=== PATIENT | female | born 1985 | race Two or more races ===

== ENCOUNTER 2023-01-17 23:46 | Inpatient (IN) | payer MEDICAID, OTHER ==
[~2023-01-17] VITALS: Ht 162.6 cm; Wt 40.4 kg
--- NOTE | 2023-01-17 23:46 | NUR ---
[id number] FROM HOME CC OF MULT. EPISODES OF VOMITING. PT WAS DX W/ ACHALASIA OF STOMACH 1 YR AGO. 11 WEEKS . A2. PT AAOX4, IN NAD, PLACED COMFORTABLY IN BED, VITALS CHECKED.
[2023-01-18] VITALS (20 sets, daily range): BP systolic 89–111; BP diastolic 65–93
[2023-01-18] MEDS ORDERED: IV NS 0.9% 1,000 ML IV PRN
[2023-01-18] MEDS ORDERED: ONDANSETRON HCL/PF 4 MG/2 ML VIAL IV ONE
[2023-01-18] MEDS ORDERED: ONDANSETRON HCL/PF 4 MG/2 ML VIAL ONE (00:02)
--- NOTE | 2023-01-18 00:05 | NUR ---
XR COMPLETED AT BEDSIDE
--- NOTE | 2023-01-18 00:55 | NUR ---
BLOOD WORK COLLECTED AND SENT TO LAB
[2023-01-18 01:16] LABS: BASOPHILS % (AUTO) 0.4 % (0.0-2.0); EOSINOPHILS % (AUTO) 0.3 % (0.0-6.0); HEMATOCRIT 46 % (33-45); HEMOGLOBIN 14.6 g/dL (11.5-14.8); LYMPHOCYTES # (AUTO) 1.5 K/uL (0.8-4.8); LYMPHOCYTES % (AUTO) 15.2 % (20.0-44.0); MEAN CORPUSCULAR HGB CONC 32 g/dl (31.0-36.0); MEAN CORPUSCULAR VOLUME 91 fL (82-100); MONOCYTES # (AUTO) 0.3 K/uL (0.1-1.30); MONOCYTES % (AUTO) 3.4 % (2.0-12.0); NEUTROPHILS % (AUTO) 80.7 % (43.0-81.0); PLATELET COUNT (AUTO) 113 K/uL (150-450); RED BLOOD CELL COUNT(AUTO) 5.11 MIL/uL (4.0-5.2); WHITE BLOOD COUNT (AUTO) 9.9 K/uL (4.3-11.0)
[2023-01-18 01:31] LABS: CALCIUM, SERUM 8.6 mg/dL (8.5-10.1); CREATININE 0.9 mg/dL (0.6-1.3); POTASSIUM 3.7 mmol/L (3.5-5.1)
[2023-01-18] MEDS ORDERED: IV D5W 1,000 ML IV ONE (02:00)
--- NOTE | 2023-01-18 02:08 | NUR ---
COVID SWAB DONE COLLECTED AND SENT TO LAB
--- NOTE | 2023-01-18 03:44 | NUR ---
20GA TO RIGHT AC ESTABLISHED
--- NOTE | 2023-01-18 03:56 | NUR ---
REPORT GIVEN TO ED AT ICU
[2023-01-18] MEDS ORDERED: IV D5W 1,000 ML IV PRN (04:00)
[2023-01-18] MEDS ORDERED: ACETAMINOPHEN 325 MG TABLET PO PRN (04:00)
[2023-01-18] MEDS ORDERED: Z GUARD REMEDY 4 OZ OINT TP PRN (04:00)
[2023-01-18] MEDS ORDERED: MAGNESIUM HYDROXIDE 30 ML UDC PO PRN (04:00)
--- NOTE | 2023-01-18 04:04 | NUR ---
per pt she is not taking any meds at home
--- NOTE | 2023-01-18 04:19 | NUR ---
transferred to [facility] under ALS protocol.
--- NOTE | 2023-01-18 08:00 | NUR ---
RN NOTES RECEIVED PATIENT IN THE BED RESTING. A/O X4, WAS COMPLAINING OF NAUSEA, VSS, SEEN HOSPITALIST Dr ISABEL, INCREASE IV INFUSION D 5 @100 ML/HR, PATIENT CONTINENT, COLLECTED UA FOR . PATIENT NOTED FEELING WEAK. PATIENT CLEAR LIQUID DIET. CALL LIGHT WITHIN TO REACH. PATIENT LAB VALUED REVIEWED, AND AWARE OF. WILL FOLLOW UP.
[2023-01-18] MEDS: ONDANSETRON HCL/PF 4 MG/2 ML VIAL IVP PRN ×3 (08:30→23:04)
--- NOTE | 2023-01-18 08:30 | NUR ---
RN NOTES ADMINISTERED ZOFRAN 4 MG/ML IV PUSH FOR NAUSEA.
[2023-01-18] MEDS: IV D5W 1,000 ML IV PRN ×3 (08:31→23:19)
--- NOTE | 2023-01-18 12:00 | NUR ---
RN NOTES MEDICATION WERE ADMINISTERED FOR NAUSEA EFFECTIVE, PATIENT EATING LUNCH, POOR EATER, NEXT TO THE BED.
[2023-01-18] MEDS: ENSURE CLEAR 237 ML LIQUID (MIX BERRY) PO SCH ×2 (13:00→17:00)
[2023-01-18] MEDS ORDERED: ENSURE ENLIVE CHOC 237 ML CAN PO SCH (14:00)
--- NOTE | 2023-01-18 17:00 | NUR ---
RN NOTES ADMINISTERED ZOFRAN 4 MG/ML IV PUSH FOR NAUSEA/VOMITING VSS, PATIENT TOLERATING FOOD. NEXT TO THE BED. INFUSING D5 @100 ML/HR INTACT ON RAC. CALL LIGHT WITHIN TO REACH.ENDORSED ONCOMING NURSE NICK.
--- NOTE | 2023-01-18 19:27 | NUR ---
RECEIVED PATIENT IN THE BED RESTING. A/O X4, ON RA, NO SOB. VSS. NAUSEOUS. PATIENT CONTINENT, UNABLE TO AMBULATE DUE TO GENERALIZED WEAKNESS. PATIENT ON CLEAR LIQUID DIET. ICE CHIPS AT BEDSIDE. SAFETY MEASURES IN PLACE. HOB ELEVATED. CALL LIGHT WITHIN TO REACH. WILL CONTINUE PLAN OF CARE.
--- NOTE | 2023-01-18 23:28 | NUR ---
ADMINISTERED ZOFRAN 4 MG/ML IV PUSH FOR NAUSEA/VOMITING. VSS. WILL CONTINUE TO MONITOR.
[2023-01-19] VITALS (24 sets, daily range): BP systolic 89–112; BP diastolic 60–81
[2023-01-19] MEDS: MAG HYDROX/AL HYDROX/SIMETH 30 ML UDC PO PRN (01:44)
[2023-01-19 04:11] LABS: BASOPHILS % (AUTO) 0.5 % (0.0-2.0); EOSINOPHILS % (AUTO) 1.5 % (0.0-6.0); HEMATOCRIT 39 % (33-45); HEMOGLOBIN 12.6 g/dL (11.5-14.8); LYMPHOCYTES # (AUTO) 1.7 K/uL (0.8-4.8); LYMPHOCYTES % (AUTO) 20.3 % (20.0-44.0); MEAN CORPUSCULAR HGB CONC 33 g/dl (31.0-36.0); MEAN CORPUSCULAR VOLUME 90 fL (82-100); MONOCYTES # (AUTO) 0.2 K/uL (0.1-1.30); MONOCYTES % (AUTO) 2.9 % (2.0-12.0); NEUTROPHILS # (AUTO) 6.4 K/uL (1.8-8.9); NEUTROPHILS % (AUTO) 74.8 % (43.0-81.0); PLATELET COUNT (AUTO) 95 K/uL (150-450); RED BLOOD CELL COUNT(AUTO) 4.31 MIL/uL (4.0-5.2); WHITE BLOOD COUNT (AUTO) 8.6 K/uL (4.3-11.0)
--- NOTE | 2023-01-19 04:23 | NUR ---
SODIUM LEVEL 160. ATTENDING PHYSICIAN NOTIFIED.
[2023-01-19 04:26] LABS: CALCIUM, SERUM 8.3 mg/dL (8.5-10.1); CREATININE 0.6 mg/dL (0.6-1.3); MAGNESIUM 2.3 mg/dL (1.8-2.4); PHOSPHORUS 2.9 mg/dL (2.5-4.9)
[2023-01-19 04:37] LABS: POTASSIUM 2.8 mmol/L (3.5-5.1)
[2023-01-19] MEDS: ONDANSETRON HCL/PF 4 MG/2 ML VIAL IVP PRN ×3 (05:13→22:39)
--- NOTE | 2023-01-19 06:50 | NUR ---
PATIENT ASLEEP IN BED RESTING. EASILY AROUSABLE. A/O X4, ON RA, NO SOB. VSS. NAUSEOUS. PATIENT CONTINENT, UNABLE TO AMBULATE DUE TO GENERALIZED WEAKNESS. PATIENT ON CLEAR LIQUID DIET. ICE CHIPS AT BEDSIDE. ENCOURAGED INTAKE. PRN MEDS GIVEN NEEDED AND ORDERED. NEEDS ATTENDED. SAFETY MEASURES MAINTAINED. HOB ELEVATED. CALL LIGHT WITHIN TO REACH. WILL ENDORSE TO NEXT NURSE ON DUTY FOR CONTINUITY OF CARE.
[2023-01-19] MEDS: ENSURE CLEAR 237 ML LIQUID (MIX BERRY) PO SCH ×3 (07:36→16:57)
[2023-01-19] MEDS: POTASSIUM CL. PREMIX PERIPHER. 50 ML IV SCH ×4 (07:41→10:34)
--- NOTE | 2023-01-19 07:45 | NUR ---
ICU/RN PT IS RESTING .ON ROOM AIR.SAT O2-98%.V/S STABLE,AFEBRILE.NO PAIN REPORTED AT THIS TIME. AWAKE,ALERT,ORIENTED.IV INFUSING ORDERED.LABS REVIEW. NOTIFIED.NEW ORDERS RECIEVED.CONTINUE MONITORING.
[2023-01-19] MEDS: methylPREDNISolone SOD SUCC 40 MG/ML VIAL IV SCH ×3 (08:48→20:43)
[2023-01-19] MEDS: IV D5W 1,000 ML IV PRN ×2 (08:51→18:16)
--- NOTE | 2023-01-19 14:50 | NUR ---
ICU/RN PT C/O OF NAUSEA.ZOFRAN 4MG IV GIVEN ORDERED. RIGHT UPPER ARM MIDLINE INSERTED ORDERED.PT NEED A LOT OF IV HYDRATION.KCL INFUSING AND IRRITATING THE PERIFERAL VEIN .PT C/O OF PAIN.CONTINUE MONITORING.
[2023-01-19 19:27] LABS: CALCIUM, SERUM 7.6 mg/dL (8.5-10.1); CREATININE 0.6 mg/dL (0.6-1.3); POTASSIUM 4.2 mmol/L (3.5-5.1)
[2023-01-20] VITALS (25 sets, daily range): BP systolic 87–111; BP diastolic 56–82
[2023-01-20 03:10] LABS: BASOPHILS % (AUTO) 0.1 % (0.0-2.0); EOSINOPHILS % (AUTO) 0.1 % (0.0-6.0); HEMATOCRIT 32 % (33-45); HEMOGLOBIN 10.7 g/dL (11.5-14.8); LYMPHOCYTES # (AUTO) 0.9 K/uL (0.8-4.8); LYMPHOCYTES % (AUTO) 9.9 % (20.0-44.0); MEAN CORPUSCULAR HGB CONC 33 g/dl (31.0-36.0); MEAN CORPUSCULAR VOLUME 88 fL (82-100); MONOCYTES # (AUTO) 0.2 K/uL (0.1-1.30); NEUTROPHILS # (AUTO) 7.9 K/uL (1.8-8.9); NEUTROPHILS % (AUTO) 87.9 % (43.0-81.0); PLATELET COUNT (AUTO) 69 K/uL (150-450); RED BLOOD CELL COUNT(AUTO) 3.65 MIL/uL (4.0-5.2)
[2023-01-20 03:23] LABS: CALCIUM, SERUM 7.8 mg/dL (8.5-10.1); CREATININE 0.5 mg/dL (0.6-1.3); POTASSIUM 3.4 mmol/L (3.5-5.1)
[2023-01-20] MEDS: ONDANSETRON HCL/PF 4 MG/2 ML VIAL IVP PRN ×3 (04:21→21:55)
[2023-01-20] MEDS: methylPREDNISolone SOD SUCC 40 MG/ML VIAL IV SCH ×3 (04:29→21:55)
[2023-01-20] MEDS: IV D5W 1,000 ML IV PRN (04:40)
[2023-01-20] MEDS: ENSURE CLEAR 237 ML LIQUID (MIX BERRY) PO SCH ×3 (08:05→17:06)
[2023-01-20] MEDS: IV D5/0.45 NACL 1,000 ML IV SCH ×2 (09:51→19:56)
[2023-01-20] MEDS: POTASSIUM CL. PREMIX PERIPHER. 50 ML IV SCH ×4 (10:24→13:34)
[2023-01-20 13:16] LABS: LYMPHOCYTES % (MANUAL) 12 % (16-48); MONOCYTES % (MANUAL) 5 % (0-11.0); NEUTROPHILS % (MANUAL) 83 (42-76)
--- NOTE | 2023-01-20 19:01 | NUR ---
BEDSIDE REPORT TO GURDEEP FOR CONTINUITY OF CARE. ALL DUE MEDS GIVEN AND CARE RENDERED.
--- NOTE | 2023-01-20 19:28 | NUR ---
RECEIVED PATIENT IN BED, ASLEEP AND RESTING COMFORTABLY. EASILY AROUSABLE. ALERT ORIENTED X4.ON RA, NO SOB. VSS. NAUSEOUS. PATIENT ON SUPPLEMENTS AND CLEAR LIQUID DIET. TO ENCOURAGE INTAKE. PATIENT CONTINENT. SKIN INTACT. IV SITE IS ON LEFT HAND#20 AND ON RIGHT AC#20 INFUSING D51/2NS AT 100 ML/HR. SAFETY MEASURES IN PLACE. HOB ELEVATED. SIDERAILS UP X2. CALL LIGHT WITHIN REACH. WILL CONTINUE PLAN OF CARE.
[2023-01-20] MEDS: MAG HYDROX/AL HYDROX/SIMETH 30 ML UDC PO PRN (21:55)
--- NOTE | 2023-01-20 22:05 | NUR ---
ADMINISTERED ZOFRAN 4 MG/ML IV PUSH FOR NAUSEA/VOMITING. VSS. WILL CONTINUE TO MONITOR.
--- NOTE | 2023-01-20 22:08 | NUR ---
RETURNED PRN MAALOX SUSP UDC 30ML PO. PT REFUSED TO TAKE MEDICATION.
[2023-01-21] VITALS (16 sets, daily range): BP systolic 88–102; BP diastolic 50–75
[2023-01-21] MEDS: methylPREDNISolone SOD SUCC 40 MG/ML VIAL IV SCH ×3 (04:17→21:29)
[2023-01-21] MEDS: IV D5/0.45 NACL 1,000 ML IV SCH ×2 (04:21→16:05)
[2023-01-21] MEDS: MAG HYDROX/AL HYDROX/SIMETH 30 ML UDC PO PRN (06:10)
[2023-01-21] MEDS: ENSURE CLEAR 237 ML LIQUID (MIX BERRY) PO SCH ×3 (08:23→17:24)
[2023-01-21] MEDS ORDERED: TPN/PPN PER PHARMACY IV PRN (09:00)
[2023-01-21 09:20] LABS: CALCIUM, SERUM 7.6 mg/dL (8.5-10.1); CREATININE 0.6 mg/dL (0.6-1.3); POTASSIUM 3.5 mmol/L (3.5-5.1)
--- NOTE | 2023-01-21 13:15 | NUR ---
RN NOTES; PT CAME FROM ICU, ALERT AND ORIENTED X 4, NOT IN ANY DISTRESS, WILL MONITOR
--- NOTE | 2023-01-21 13:30 | NUR ---
RN NOTES PT BEING DOWNGRADED TO TELEMETRY. PT IS STABLE, VSS, NO COMPLAINT OF PAIN AT THIS TIME, ALL DUE MEDICATIONS GIVEN. PT GOING TO ROOM 104, REPORT GIVEN TO ONCOMING NURSE FOR CONTINUATION OF CARE.
[2023-01-21] MEDS: ONDANSETRON HCL/PF 4 MG/2 ML VIAL IVP PRN (13:36)
[2023-01-21] MEDS ORDERED: TRACE ELEMENTS IV SCH (17:00)
[2023-01-21] MEDS ORDERED: TPN ADDITIVES IV SCH (17:00)
[2023-01-21] MEDS ORDERED: [UNRECOGNIZED DRUG - OTHER] IV SCH (17:00)
[2023-01-21] MEDS ORDERED: MVI ADULT IV SCH (17:00)
[2023-01-21] MEDS ORDERED: IV D5/0.45 NACL 1,000 ML IV SCH (17:30)
--- NOTE | 2023-01-21 17:30 | NUR ---
RN NOTES/: PICC LINE INSERTED BY KARAN BORREGO DNP, RIGHT UPPER ARM 2 LUMEN PATENT AND FLUSHING WELL, STARTED TPN AT 42 ML/HR, PHARMACY CALLED TO LOWER IV FLUID TO 58 ML/HR, IV HYDRATION LOWERED, OFFERED ICE CHIPS, WILL CONTINUE TO MONITOR
--- NOTE | 2023-01-21 19:10 | NUR ---
RN NOTE RECEIVED PT FOR CONTINUITY OF CARE. PATIENT A/OX4 IN NO S/SX OF ACUTE DISTRESS AT THIS TIME; CURRENTLY ON ROOM AIR WITH 02 SAT >95% AT THIS TIME.WITH IV ACCESS ON R UA PICC AND HAND#20 BOTH PATENT, INTACT AND FLUSHING WELL. WITH RUNNING D51/2NS@58MLS/HR AND TPN RUNNING @42ML/HR. WILL ENSURE SAFETY MEASURES WITHIN THE SHIFT. PATIENT BED ALARM IS ON. HEAD OF BED ELEVATED. BED IS LOCKED, IN LOWEST POSITION AND SIDE RAILS UP. CALL LIGHT WITHIN REACH OF THE PATIENT. WILL CONTINUE TO MONITOR AND REASSESS FOR ANY CHANGES AND WILL CARRY OUT ANY ONGOING AND ACTIVE MD ORDER.
--- NOTE | 2023-01-21 19:59 | NUR ---
RN CLOSING NOTES: MS RN CLOSING NOTE PT IN BED AWAKE ALERT AND ORIENTED. ALL DUE MEDS GIVEN. NEEDS MET. PM CARE DONE. ENDORSED TO FEED MIXER HELPER NURSE FOR NICK.
[2023-01-22] VITALS: BP 92/51
[2023-01-22 04:00] VITALS: BP 92/49
--- NOTE | 2023-01-22 04:00 | NUR ---
RN NOTE PATIENT REMAINED TO BE IN NO SIGNS OF ACUTE RESPIRATORY DISTRESS, SAFE ENVIRONMENT MAINTAINED FOR PT. AM PATIENT CARE ASSISTANCE RENDERED. WILL CONTINUE TO MONITOR AND REASSESS FOR ANY CHANGES THROUGHOUT THE SHIFT.
[2023-01-22] MEDS: methylPREDNISolone SOD SUCC 40 MG/ML VIAL IV SCH ×3 (04:37→20:38)
[2023-01-22 06:23] LABS: HEMATOCRIT 27 % (33-45); LYMPHOCYTES % (AUTO) 13.1 % (20.0-44.0); MEAN CORPUSCULAR HGB CONC 34 g/dl (31.0-36.0); MEAN CORPUSCULAR VOLUME 87 fL (82-100); MONOCYTES # (AUTO) 0.3 K/uL (0.1-1.30); MONOCYTES % (AUTO) 3.5 % (2.0-12.0); NEUTROPHILS # (AUTO) 6.1 K/uL (1.8-8.9); NEUTROPHILS % (AUTO) 83.4 % (43.0-81.0); PLATELET COUNT (AUTO) 60 K/uL (150-450); RED BLOOD CELL COUNT(AUTO) 3.11 MIL/uL (4.0-5.2); WHITE BLOOD COUNT (AUTO) 7.3 K/uL (4.3-11.0)
--- NOTE | 2023-01-22 06:24 | NUR ---
RN NOTE PATIENT REMAINS IN ROOM IN NO SIGNS OF RESPIRATORY DISTRESS, PATIENT STILL ON ROOM AIR ;TOLERATING WELL SATURATING @ >95% SP02. SR ON MONITOR. ON CLEAR LIQUID DIET. WITH PUREWICK CONNECTED TO SUCTION. SAFETY MEASURES IMPLEMENTED, BED IN LOWEST POSITION, LOCKED, SIDE RAILS UP, CALL LIGHT WITHIN REACH. ALL NEEDS AND ORDERS ADDRESSED DURING THE SHIFT. IV ACCESS MAINTAINED INTACT, SECURED AND FLUSHING WELL. TPN AND IV FLUIDS RUNNING ORDERED. ALL DUE MEDS GIVEN ORDERED & SCHEDULED ; PATIENT TOLERATED WELL. PATIENT KEPT CLEAN AND COMFORTABLE WITHIN THE SHIFT. PLAN: LABS; IV STEROIDS, LAND CLASSIFIER OUTPATIENT F/U, IV HYDRATION AT HOME ONCE DC'D AND CONTINUE TPN FOR NOW. PATIENT ENDORSED TO INCOMING SHIFT RN WITH STABLE VITAL SIGN AND FOR CONTINUITY OF CARE.
[2023-01-22 06:53] LABS: CALCIUM, SERUM 8.3 mg/dL (8.5-10.1); CREATININE 0.4 mg/dL (0.6-1.3); PHOSPHORUS 2.5 mg/dL (2.5-4.9)
[2023-01-22 06:54] LABS: POTASSIUM 2.8 mmol/L (3.5-5.1)
--- NOTE | 2023-01-22 07:40 | NUR ---
HVAC TECHNICIAN RESIDENTIAL OPENING NOTE RECEIVED PATIENT IN BED SLEEPING, VERBALLY RESPONSIVE WHEN AWAKEN. REMAINS IN ROOM IN NO SIGNS OF RESPIRATORY DISTRESS, PATIENT STILL ON ROOM AIR ;TOLERATING WELL SATURATING @ >95% SP02. SR ON MONITOR. ON CLEAR LIQUID DIET. WITH PUREWICK CONNECTED TO SUCTION. SAFETY MEASURES IMPLEMENTED, BED IN LOWEST POSITION, LOCKED, SIDE RAILS UP, CALL LIGHT WITHIN REACH. IV ACCESS MAINTAINED INTACT, SECURED AND FLUSHING WELL. TPN AND IV FLUIDS RUNNING ORDERED. PLAN OF CARE CONTINUE.
[2023-01-22] MEDS: ENSURE CLEAR 237 ML LIQUID (MIX BERRY) PO SCH ×3 (07:41→16:05)
[2023-01-22 08:00] VITALS: BP 95/46
[2023-01-22] MEDS ORDERED: IV D5/0.45 NACL 1,000 ML IV PRN (08:22)
[2023-01-22] MEDS: POTASSIUM CL. PREMIX PERIPHER. 50 ML IV SCH ×4 (09:53→13:05)
[2023-01-22] MEDS ORDERED: INSULIN REGULAR, HUMAN 100 UNIT/ML 3 ML VIAL SQ PRN (10:00)
[2023-01-22] MEDS ORDERED: DEXTROSE 50%-WATER 50 ML DISP.SYRIN IV PRN (10:00)
[2023-01-22 12:00] VITALS: BP 96/56
[2023-01-22] MEDS: BLOOD SUGAR DIAGNOSTIC 1 EACH STRIP IN SCH ×2 (12:23→18:06)
[2023-01-22] MEDS ORDERED: Magnesium 1GM/D5W 100ML PREMIX 100 ML IV SCH (14:00)
[2023-01-22 16:00] VITALS: BP 93/56
[2023-01-22] MEDS ORDERED: TPN #2 IV SCH ×2 (17:00)
--- NOTE | 2023-01-22 18:21 | NUR ---
ADJUSTER AND INSPECTOR CLOSING NOTE PATIENT IN BED AWAKE, AT THE BEDSIDE, ALERT AND VERBALLY RESPONSIVE, REMAINS IN ROOM IN NO SIGNS OF RESPIRATORY DISTRESS;TOLERATING WELL SATURATING @ >95% SP02. SR ON MONITOR. WITH PUREWICK CONNECTED TO SUCTION. IRVING PICC LINE NOTED PATENT AND INTACT, FLUSHES WELL, WITH TPN RUNNING AT 60ML/HR. SAFETY MEASURES IMPLEMENTED, BED IN LOWEST POSITION, LOCKED, SIDE RAILS UP, CALL LIGHT WITHIN REACH. IV ACCESS MAINTAINED INTACT, SECURED AND FLUSHING WELL. WILL ENDORSE TO NIGHT NURSE FOR NICK.
--- NOTE | 2023-01-22 19:30 | NUR ---
PARKS AND RECREATION WORKER OPENING NOTE RECEIVED PT IN BED , AWAKE, A/O X 4, ABLE TO VERBALIZE NEEDS. ON BEDSIDE. CURRENTLY ON ROOM AIR, TOLERATING WELL, SATING @ 99%. FIELD SERVICE ANALYST READS SR. NO S/SX OF ACUTE RESPI DISTRESS NOTED AT THIS TIME. NO SOB. BREATHING IS EVEN AND UNLABORED. IV ACCESS ON IRVING PICC AND R HAND #20g, BOTH PATENT, INTACT AND FLUSHING WELL. TPN RUNNING @ 60 ML/HR. PUREWICK CATHETER IN PLACE. ALL SAFETY MEASURES IMPLEMENTED: BED ALARM IS ON. HEAD OF BED ELEVATED. BED IS LOCKED, IN LOWEST POSITION AND SIDE RAILS UP. CALL LIGHT WITHIN REACH. WILL CONTINUE TO MONITOR AND REASSESS FOR ANY CHANGES AND WILL CARRY OUT ANY ONGOING AND ACTIVE MD ORDER.
[2023-01-22 20:00] VITALS: BP 94/55
[2023-01-23] VITALS (7 sets, daily range): BP systolic 89–116; BP diastolic 42–63
[2023-01-23] MEDS: INSULIN REGULAR, HUMAN 100 UNIT/ML 3 ML VIAL SQ PRN ×3 (00:22→23:45)
[2023-01-23] MEDS: BLOOD SUGAR DIAGNOSTIC 1 EACH STRIP IN SCH ×5 (00:22→23:45)
[2023-01-23] MEDS: methylPREDNISolone SOD SUCC 40 MG/ML VIAL IV SCH ×3 (04:18→20:47)
--- NOTE | 2023-01-23 06:20 | NUR ---
QUALITY CONSULTANT CLOSING NOTE PT REMAINED STABLE T/O THE NIGHT. EMETIC EPISODE DOCUMENTED 2X WITH LESS THAN 100 CC OUTPUT. ALL DUE MEDS GIVEN. NEEDS MET. KEPT PT CLEAN AND DRY. SAFETY PRECAUTIONS IN PLACE. WILL ENDORSE TO AM SHIFT NURSE FOR NICK.
--- NOTE | 2023-01-23 07:10 | NUR ---
MIXER AND SCALER OPENING NOTE RECEIVED PT IN BED , AWAKE, A/O X 4, ABLE TO VERBALIZE NEEDS ON ROOM AIR, TOLERATING WELL, SATING @ 99%. STEM THRESHING MACHINE OPERATOR READS SR. NO S/SX OF ACUTE RESPI DISTRESS NOTED AT THIS TIME. NO SOB. BREATHING IS EVEN AND UNLABORED. IV ACCESS ON IRVING PICC AND R HAND #20g, BOTH PATENT, INTACT AND FLUSHING WELL. TPN RUNNING @ 60 ML/HR. PUREWICK CATHETER IN PLACE. ALL SAFETY MEASURES IMPLEMENTED: BED ALARM IS ON. HEAD OF BED ELEVATED. BED IS LOCKED, IN LOWEST POSITION AND SIDE RAILS UP. CALL LIGHT WITHIN REACH. WILL CONTINUE TO MONITOR AND REASSESS FOR ANY CHANGES AND WILL CARRY OUT ANY ONGOING AND ACTIVE MD ORDER.
[2023-01-23 07:31] LABS: CALCIUM, SERUM 7.6 mg/dL (8.5-10.1); CREATININE 0.3 mg/dL (0.6-1.3); MAGNESIUM 2.1 mg/dL (1.8-2.4); PHOSPHORUS 2.1 mg/dL (2.5-4.9); POTASSIUM 2.9 mmol/L (3.5-5.1)
[2023-01-23] MEDS: ENSURE CLEAR 237 ML LIQUID (MIX BERRY) PO SCH ×3 (08:39→16:50)
[2023-01-23] MEDS: POTASSIUM PHOSPHATE MM 7.5 MMOL in IV NS 0.9% 100 ML IV SCH ×2 (08:48→10:46)
[2023-01-23] MEDS ORDERED: TPN #3 IV SCH ×4 (09:00)
[2023-01-23] MEDS: POTASSIUM CL. PREMIX PERIPHER. 50 ML IV SCH ×2 (14:50→15:54)
[2023-01-23] MEDS ORDERED: MGSO4/D5W 100 ML IV SCH (17:00)
--- NOTE | 2023-01-23 18:31 | NUR ---
CALL OUT OPERATOR CLOSING NOTE RECEIVED PT IN BED , AWAKE, A/O X 4, ABLE TO VERBALIZE NEEDS ON ROOM AIR, TOLERATING WELL, SATING @ 99%. BIOPSYCHOLOGIST READS SR. NO S/SX OF ACUTE RESPI DISTRESS NOTED AT THIS TIME. NO SOB. BREATHING IS EVEN AND UNLABORED. IV ACCESS ON IRVING PICC AND R HAND #20g, BOTH PATENT, INTACT AND FLUSHING WELL. TPN RUNNING @ 60 ML/HR. ALL SAFETY MEASURES IMPLEMENTED: BED ALARM IS ON. HEAD OF BED ELEVATED. BED IS LOCKED, IN LOWEST POSITION AND SIDE RAILS UP. CALL LIGHT WITHIN REACH. WILL CONTINUE TO MONITOR AND REASSESS FOR ANY CHANGES AND WILL CARRY OUT ANY ONGOING AND ACTIVE MD ORDER.
[2023-01-23] MEDS ORDERED: POTASSIUM CHLORIDE 20 MEQ TAB.PRT.SR PO SCH (19:00)
--- NOTE | 2023-01-23 19:25 | NUR ---
MS RN OPENING NOTES - RECEIVED PATIENT SLEEPING, EASY TO AROUSE. HOB IN SEMI-CARBALLO'S. A/O X4, WEAK AND PALE. BREATHING EVEN AND NON-LABORED ON ROOM AIR. NOT IN APPARENT DISTRESS. NO C/O PAIN OR DISCOMFORT AT THIS TIME. DENIES NAUSEA. HAS RIGHT UPPER ARM PICC LINE WITH TPN RUNNING AT 60 ML/HR. NO S/S OF INFILTRATION NOTED. SAFETY PRECAUTIONS IN PLACE: BED LOCKED AND IN LOW POSITION, SIDE RAILS UP X2, CALL LIGHT WITHIN REACH. WILL CONTINUE PLAN OF CARE.
--- NOTE | 2023-01-23 20:36 | NUR ---
NOTIFIED HOSPITALIST LUPE THAT PATIENT'S BP ARE 88/44 AND 89/50 LEFT ARM. SBP HAS BEEN IN THE 90'S, HAS HYPEREMESIS AND 11 WEEKS . ORDERED IVF NS 500 ML BOLUS. NOTED AND CARRIED OUT.
[2023-01-23] MEDS ORDERED: IV NS 0.9% 500 ML IV ONE (21:00)
[2023-01-23] MEDS ORDERED: TPN #4 IV SCH ×2 (22:00)
[2023-01-24 04:00] VITALS: BP 93/55
[2023-01-24] MEDS: methylPREDNISolone SOD SUCC 40 MG/ML VIAL IV SCH ×3 (05:26→21:02)
[2023-01-24] MEDS: BLOOD SUGAR DIAGNOSTIC 1 EACH STRIP IN SCH ×3 (05:40→17:09)
[2023-01-24] MEDS: INSULIN REGULAR, HUMAN 100 UNIT/ML 3 ML VIAL SQ PRN ×3 (05:40→17:09)
[2023-01-24 06:57] LABS: CALCIUM, SERUM 7.8 mg/dL (8.5-10.1); CREATININE 0.3 mg/dL (0.6-1.3); MAGNESIUM 2.2 mg/dL (1.8-2.4); PHOSPHORUS 2.7 mg/dL (2.5-4.9)
--- NOTE | 2023-01-24 07:04 | NUR ---
MS RN CLOSING NOTES - PATIENT RESTING IN BED. ABLE TO VERBALIZE NEEDS. NO SOB OR NOTED. NO ACUTE DISTRESS THROUGHOUT THE NIGHT. AFEBRILE. DENIES N/V, LIGHTHEADEDNESS PRESENT. RIGHT UPPER ARM PICC LINE INTACT, PATENT AND FLUSHING. BILATERAL LOWER EXTREMITIES ELEVATED. ENCOURAGED TO INCREASE P.O. INTAKE. ALL DUE MEDS GIVEN AND NEEDS ATTENDED. ON BED REST, NEEDS ASSISTANCE WITH PERINEAL CARE. SAFETY PRECAUTIONS MAINTAINED. WILL ENDORSE TO NEXT SHIFT FOR NICK.
[2023-01-24 08:00] VITALS: BP 95/62
[2023-01-24] MEDS: ENSURE CLEAR 237 ML LIQUID (MIX BERRY) PO SCH ×3 (08:00→16:23)
[2023-01-24] MEDS: POTASSIUM CL. PREMIX PERIPHER. 50 ML IV SCH ×5 (09:03→13:49)
[2023-01-24] MEDS ORDERED: TPN #5 IV SCH ×4 (10:00)
[2023-01-24] MEDS ORDERED: Calcium Gluconate 1GM/10ML 4.65 MEQ in IV NS 0.9% 100 ML IV ONE (14:00)
[2023-01-24] MEDS ORDERED: FAT EMULSION 20% 500 ML in PREMIX 1 EA IV SCH (15:00)
[2023-01-24 16:00] VITALS: BP 97/68
--- NOTE | 2023-01-24 18:26 | NUR ---
END OF SHIFT SUMMARY PATIENT IS A/O X4. AND CURRENTLY ON BED REST. CONTINENT BUT PATIENT OPT TO WEAR DIAPER. ABLE TO MAKE NEEDS KNOWN. IV ACCESS ON IRVING PICC LINE, DRESSING C/D/I. TPN RUNNING AT 83 ML/HR. K IS 3.0, REPLACED. BLOOD GLUCOSE MONITORED, NO INSULIN GIVEN PER MD-SLIDING SCALE. PATIENT WITH EPISODES OF VOMITING. OFFERED MED BUT PATIENT REFUSED - SHE SAID SHE'S NOT NAUSEOUS AND MORE LIKE DIZZY. SAFETY MEASURES MAINTAINED. BED IN LOWEST POSITION, BRAKES LOCKED. SIDE RAILS UP X2. CALL LIGHT WITHIN REACH. WILL ENDORSE CONTINUITY OF CARE TO ONCOMING SHIFT.
--- NOTE | 2023-01-24 19:30 | NUR ---
PROPERTY WORKER OPENING NOTE RECEIVED PT IN BED , AWAKE, A/O X 4, ABLE TO VERBALIZE NEEDS ON ROOM AIR, TOLERATING WELL, SATING @ 99%. NO S/SX OF ACUTE RESPI DISTRESS NOTED AT THIS TIME. NO SOB. BREATHING IS EVEN AND UNLABORED. IV ACCESS ON IRVING PICC AND R HAND #20g, BOTH PATENT, INTACT AND FLUSHING WELL. TPN AND LIPIDS RUNNING ORDERED. ALL SAFETY MEASURES IMPLEMENTED: BED ALARM IS ON. HEAD OF BED ELEVATED. BED IS LOCKED, IN LOWEST POSITION AND SIDE RAILS UP. CALL LIGHT WITHIN REACH. WILL CONTINUE TO MONITOR AND REASSESS FOR ANY CHANGES. Addendum: 01/25/23 at 0635 by JANETH ALFARO RN MS RN OPENING NOTE
[2023-01-24 20:00] VITALS: BP 90/40
[2023-01-24] MEDS ORDERED: TPN #6 IV SCH ×2 (22:00)
--- NOTE | 2023-01-24 22:09 | NUR ---
RN NOTE TPN BAG #6 NOT GIVEN. MEDS NOT AVAILABLE AT THE UNIT. CN MADE AWARE. WILL NOTIFY NSG COMMERCIAL PAINTER.
[2023-01-25] MEDS: BLOOD SUGAR DIAGNOSTIC 1 EACH STRIP IN SCH ×6 (01:00→23:33)
[2023-01-25 04:00] VITALS: BP 93/43
[2023-01-25] MEDS: methylPREDNISolone SOD SUCC 40 MG/ML VIAL IV SCH (05:38)
--- NOTE | 2023-01-25 06:22 | NUR ---
RN NOTE PHARMACY CALLED, SPOKE TO GEORGE. PER PHRMACY THEY WILL SEND ANOTHER BAG OF TPN TO BE ADMINISTERED THIS MORNING.
--- NOTE | 2023-01-25 06:35 | NUR ---
MS RN CLOSING NOTE PT REMAINS IN BED, ASLEEP, A/O X 4, ABLE TO VERBALIZE NEEDS ON ROOM AIR, TOLERATING WELL, SATING @ 99%. NO S/SX OF ACUTE RESPI DISTRESS NOTED AT THIS TIME. NO SOB. BREATHING IS EVEN AND UNLABORED. IV ACCESS AT [facility] LIPIDS RUNNING ORDERED. NO EPISODES OF N&V THROUGHOUT SHIFT. ALL SAFETY MEASURES IMPLEMENTED: BED ALARM IS ON. HEAD OF BED ELEVATED. BED IS LOCKED AND IN LOWEST POSITION AND SIDE RAILS UP. CALL LIGHT WITHIN REACH. ALL DUE MEDS GIVEN, KEPT DRY AND CLEAN, WILL ENDORSE TO AM SHIFT NURSE FOR CONTINUITY OF CARE.
[2023-01-25] MEDS ORDERED: TPN #6 IV SCH ×4 (07:00)
--- NOTE | 2023-01-25 07:04 | NUR ---
RN NOTE TPN BAG #6 STARTED ORDERED.
[2023-01-25 07:22] LABS: CALCIUM, SERUM 8.3 mg/dL (8.5-10.1); CREATININE 0.3 mg/dL (0.6-1.3); MAGNESIUM 2.1 mg/dL (1.8-2.4); PHOSPHORUS 3.7 mg/dL (2.5-4.9); POTASSIUM 3.2 mmol/L (3.5-5.1)
--- NOTE | 2023-01-25 07:52 | NUR ---
MS RN OPENING NOTE PT REMAINS IN BED, ASLEEP, A/O X 4, ABLE TO VERBALIZE NEEDS ON ROOM AIR, TOLERATING WELL,NO S/SX OF ACUTE RESPI DISTRESS NOTED AT THIS TIME. NO SOB. BREATHING IS EVEN AND UNLABORED. IV ACCESS AT [facility] PIC TPN WITH LIPIDS RUNNING ORDERED. NO EPISODES OF N&V AT THIS TIME. ALL SAFETY MEASURES IMPLEMENTED: BED ALARM IS ON. HEAD OF BED ELEVATED. BED IS LOCKED AND IN LOWEST POSITION AND SIDE RAILS UP. CALL LIGHT WITHIN REACH. PLAN OF CARE CONTINUE.
[2023-01-25 08:00] VITALS: BP 100/62
[2023-01-25] MEDS: ENSURE CLEAR 237 ML LIQUID (MIX BERRY) PO SCH ×3 (08:09→16:11)
[2023-01-25] MEDS ORDERED: [UNRECOGNIZED DRUG - CODE] IV (08:55)
[2023-01-25] MEDS ORDERED: ONDA4TAB5 PO (08:56)
[2023-01-25] MEDS: POTASSIUM CL. PREMIX PERIPHER. 50 ML IV SCH ×7 (10:21→22:53)
[2023-01-25] MEDS ORDERED: POTASSIUM CHLORIDE 20 MEQ TAB.PRT.SR PO SCH (14:30)
[2023-01-25 16:00] VITALS: BP 108/66
[2023-01-25] MEDS ORDERED: MGSO4/D5W 100 ML IV SCH (18:00)
--- NOTE | 2023-01-25 18:27 | NUR ---
MS RN CLOSING NOTE PT REMAINS IN BED, AWAKE, AT THE BEDSIDE, A/O X 4, ABLE TO VERBALIZE NEEDS ON ROOM AIR, TOLERATING WELL,NO S/SX OF ACUTE RESPI DISTRESS NOTED AT THIS TIME. NO SOB. BREATHING IS EVEN AND UNLABORED. IV ACCESS AT [facility] PIC TPN WITH LIPIDS RUNNING ORDERED. PATIENT STILL NOTING VOMITING, REFUSED ZOFRAN. ALL SAFETY MEASURES IMPLEMENTED: BED ALARM IS ON. HEAD OF BED ELEVATED. BED IS LOCKED AND IN LOWEST POSITION AND SIDE RAILS UP. CALL LIGHT WITHIN REACH.WILL ENDORSE TO NIGHT NURSE FOR NICK.
[2023-01-25] MEDS ORDERED: TPN #7 IV SCH ×2 (19:00)
--- NOTE | 2023-01-25 19:30 | NUR ---
MS RN OPENING NOTE RECEIVED PT IN BED, AWAKE, A/O X 4, ABLE TO VERBALIZE NEEDS ON ROOM AIR, TOLERATING WELL, SATING @ 99%, FAMILY MEMBER AT BEDSIDE, NO S/SX OF ACUTE RESPI DISTRESS NOTED AT THIS TIME. NO SOB. BREATHING IS EVEN AND UNLABORED. IV ACCESS ON IRVING PICC INTACT AND FLUSHING WELL. TPN AND LIPIDS RUNNING ORDERED. ALL SAFETY MEASURES IMPLEMENTED: BED ALARM IS ON. HEAD OF BED ELEVATED. BED IS LOCKED, IN LOWEST POSITION AND SIDE RAILS UP. CALL LIGHT WITHIN REACH. WILL CONTINUE TO MONITOR THROUGHOUT THE SHIFT.
[2023-01-25 19:33] LABS: ALBUMIN 2.5 g/dL (3.4-5.0); BILIRUBIN,TOTAL 0.3 mg/dL (0.2-1.0); CALCIUM, SERUM 7.8 mg/dL (8.5-10.1); CREATININE 0.4 mg/dL (0.6-1.3); TOTAL PROTEIN, SERUM 5.9 g/dL (6.4-8.2)
[2023-01-25 19:36] LABS: POTASSIUM 2.8 mmol/L (3.5-5.1)
--- NOTE | 2023-01-25 19:45 | NUR ---
RN NOTE RECEIVED CRITICAL VALUE FROM LAB K 2.8 FROM 3.2, NOTIFIED FUGITIVE DETECTIVE MD ANDRADE. PT WAS TRANSFUSED WITH 50 MEQ IN AM. ORDERED TO TRANSFUSE ANOTHER 100 MEQ KCL IV NOW. ORDER TAKEN AND CARRIED OUT. CN MADE AWARE.
[2023-01-25 20:00] VITALS: BP 92/54
[2023-01-25] MEDS ORDERED: POTASSIUM CL. PREMIX PERIPHER. 50 ML IV SCH ×2 (20:30→21:30)
[2023-01-25] MEDS ORDERED: POTASSIUM CHLORIDE 10 MEQ/50 ML PREMIXED IVPB FOR PERIPHERAL LINE IV ONE ×3 (20:30→22:00)
[2023-01-25] MEDS: ONDANSETRON HCL/PF 4 MG/2 ML VIAL IVP PRN (20:30)
--- NOTE | 2023-01-25 20:35 | NUR ---
RN NOTE PT COMPLAINTS OF N&V, ZOFRAN GIVEN ORDERED.
--- NOTE | 2023-01-25 21:30 | NUR ---
RN NOTE [facility] CALLED, SPOKE TO MARYANN BAI VERIFY WITH MD ABOUT 100 MEQ KCL ORDER SINCE PT ALREADY GOT 50 MEQ IN AM. SILK SCREEN PROCESSOR JAYA MADE AWARE. PER CHANGE ORDER TO 50 MEQ AND CHECK LAB SCHEDULED. ORDER TAKEN AND CARRIED OUT. MALACHI MADE AWARE.
[2023-01-26] MEDS: POTASSIUM CL. PREMIX PERIPHER. 50 ML IV SCH ×3 (00:02→02:41)
[2023-01-26 04:00] VITALS: BP 97/58
[2023-01-26] MEDS: BLOOD SUGAR DIAGNOSTIC 1 EACH STRIP IN SCH (06:12)
--- NOTE | 2023-01-26 06:40 | NUR ---
MS RN CLOSING NOTE PT REMAINS IN BED, AWAKE, A/O X 4, ABLE TO VERBALIZE NEEDS ON ROOM AIR, TOLERATING WELL, SATING @ 99%. NO S/SX OF ACUTE RESPI DISTRESS NOTED AT THIS TIME. NO SOB. BREATHING IS EVEN AND UNLABORED. IV ACCESS AT [facility] TPN RUNNING ORDERED. ALL SAFETY MEASURES IMPLEMENTED: BED ALARM IS ON. HEAD OF BED ELEVATED. BED IS LOCKED AND IN LOWEST POSITION AND SIDE RAILS UP. CALL LIGHT WITHIN REACH. ALL DUE MEDS GIVEN, KEPT DRY AND CLEAN, WILL ENDORSE TO AM SHIFT NURSE FOR CONTINUITY OF CARE.
[2023-01-26] MEDS ORDERED: TPN #8 IV SCH ×4 (07:00)
--- NOTE | 2023-01-26 07:00 | NUR ---
FORMULA MIXER OPENING NOTE PATIENT A/A/OX4, ON ROOM AIR O2 SAT 99%, NO RESPIRATORY DISTRESS NOTED. HOB ELEVATED, SIDE RAILS UP X3. IRVING PICC LINE DOUBLE LUMEN INFUSING TPN AT 83ML/HR. NO SKIN ISSUES IS INTACT. SODIUM LEVEL KLGZL=983, POTASSIUM LEVEL TODAY=3.4. PATIENT DENIES PAIN AT PRESENT, DENIES NAUSEAS AT PRESENT. SAFETY MEASURES IN PLACE, BED LOCKED TO THE LOWEST POSITION, CALL LIGHT AND TABLE WITHIN REACH. PATIENT INSTRUCTED TO CALL FOR ASSISTANCE. PATIENT VERBALIZED UNDERSTANDING INSTRUCTIONS. CONT. TO MONITOR.
[2023-01-26 07:10] LABS: CALCIUM, SERUM 7.8 mg/dL (8.5-10.1); CREATININE 0.2 mg/dL (0.6-1.3); PHOSPHORUS 2.7 mg/dL (2.5-4.9); POTASSIUM 3.4 mmol/L (3.5-5.1)
[2023-01-26] MEDS ORDERED: POTASSIUM CL. PREMIX PERIPHER. 50 ML IV SCH (09:00)
[2023-01-26] MEDS: ENSURE CLEAR 237 ML LIQUID (MIX BERRY) PO SCH (11:09)
--- NOTE | 2023-01-26 12:15 | NUR ---
OFFICE MACHINE EMBOSSOGRAPH OPERATOR NOTE PATIENT STATED, I WANT TO GO HOME, I WANT TO GO TO A HOSPITAL WHO TAKE CARE PROBLEMS. A NURSE IN CHARGE OF THE PATIENT. I NOTIFIED TO MY CHARGE NURSE, ALEXANDR, BANKING REPRESENTATIVE YELENA MILLIGAN. I ALSO NOTIFIED TO DR. KARAN BORREGO. HE SAID IF THE PATIENT WANT TO GO HOME WITHOUT MEDICAL ADVICE, PATIENT NEED TO SIGN THE AMA FORM AND PROVIDE TO PATIENT ALL THE RECORDS REQUESTED BY THE PATIENT. PATIENT EXPLAINED THE AMA PROCESS AND PATIENT HAS AGREE TO SIGN THE AMA FORM. PICC LINE REMOVED BY ABISAI FERREIRA. CATHETER TIP INTACT. NO S/S OF INFILTRATION NOTED. PRESSURE DRESSING APPLIED. PATIENT IS HAPPY AND IS GOING HOME VIA W/C ACCOMPANIED BY PATIENT'S . PATIENT DENIES PAIN, PATIENT DENIES NAUSEAS. Addendum: 01/26/23 at 1451 by WANG PATINON THE BANKING REPRESENTATIVE I SPOKE WITH WAS ROBERTH AND NOT YELENA MILLIGAN
[2023-01-26] MEDS ORDERED: MGSO4/D5W 100 ML IV SCH (15:00)
[2023-01-26] MEDS ORDERED: Magnesium 1GM/D5W 100ML PREMIX 100 ML IV SCH (15:00)
[2023-01-26] MEDS ORDERED: Calcium Gluconate 1GM/10ML 4.65 MEQ in IV NS 0.9% 100 ML IV ONE (18:00)
[2023-01-26] MEDS ORDERED: TPN #9 IV SCH ×4 (19:00)
[2023-01-27] MEDS ORDERED: TPN #10 IV SCH ×2 (07:00)
== END 2023-01-26 13:13 | disposition left against medical advice (07) | DRG 566 ==
LOC: ER 23:46 → ICU 01-18 03:43 → TELE1 01-21 13:12 → MEDSG1 01-23 13:46
PROVIDERS: ADMIT Internal Medicine; ATTEND Nurse Practitioner Acute Care
PROC: 05HB33Z Insertion of Infusion Device into Right Basilic Vein, Percutaneous Approach (ICD-10-PCS; principal; 2023-01-19)
PROC: 05HY33Z Insertion of Infusion Device into Upper Vein, Percutaneous Approach (ICD-10-PCS; 2023-01-21)
DX: O21.1 Hyperemesis gravidarum with metabolic disturbance (principal); N17.0 Acute kidney failure with tubular necrosis; E43 Unspecified severe protein-calorie malnutrition; E86.0 Dehydration; O26.831 Pregnancy related renal disease, first trimester; E87.6 Hypokalemia; E88.09 Other disorders of plasma-protein metabolism, not elsewhere classified; O25.11 Malnutrition in pregnancy, first trimester; Z3A.11 11 weeks gestation of pregnancy; E86.1 Hypovolemia; Z20.822 Contact with and (suspected) exposure to COVID-19
CPT/HCPCS: 36410; 36415; 36569; 71045-TC; 80048-TC; 80053-TC; 82040-TC; 82962-TC; 83735-TC; 84100-TC; 84295-TC; 84478-TC; 84702-TC; 85025-TC; 87081-TC; 92526; 92611-TC; A4216; A4223; C9803; G0378; J0610; J1815; J2405; J2920; J3475; J3480; J3490; J7030; J7040; J7050; J7070